=== PATIENT | female | born 1995 | race Caucasian/White ===

== ENCOUNTER 2016-06-30 00:40 | Emergency (ER) | payer MEDICAID ==
[2016-06-30] MEDS ORDERED: ACETAMINOPHEN 325 MG TAB ONE (04:20)
== END 2016-06-30 08:40 | disposition other institution (70) ==
LOC: ER 00:40
DX: F31.9 Bipolar disorder, unspecified (principal); F33.2 Major depressive disorder, recurrent severe without psychotic features; R45.851 Suicidal ideations; Z79.899 Other long term (current) drug therapy; Z79.84 Long term (current) use of oral hypoglycemic drugs; E28.2 Polycystic ovarian syndrome; J45.909 Unspecified asthma, uncomplicated
CPT/HCPCS: 36415; 80053; 80307; 80320; 80329; 81003; 84439; 84443; 84703; 85025; 85610